=== PATIENT | female | born 1995 | race Two or more races ===

== ENCOUNTER 2019-09-17 18:55 | Emergency (ER) | payer SELFPAY ==
[2019-09-17 19:35] VITALS: BP 145/94
[2019-09-17] MEDS ORDERED: IPRATRPIUM/ALBUTEROL 0.5/2.5MG 3 ML NEBU. NEB ONE (20:00)
[2019-09-17] MEDS ORDERED: BENZONATATE 100 MG CAPSULE. PO ONE (20:00)
[2019-09-17] MEDS ORDERED: ACETAMINOPHEN 500 MG TABLET PO ONE (20:00)
[2019-09-17] MEDS ORDERED: predniSONE 10 MG TABLET PO ONE (20:00)
[2019-09-17 20:19] LABS: INFLUENZA A PATIENT NEGATIVE (NEGATIVE); INFLUENZA B PATIENT NEGATIVE (NEGATIVE)
--- NOTE | 2019-09-17 20:52 | PHYS DOC ---
Past Medical History Alcohol Use: None Adult General Chief Complaint Chief Complaint: COUGH HPI HPI Patient is a 24 year old female who presents to the ED today with a cough that began 3 weeks ago, sore throat and fever that began yesterday. Patient is Yoruba-speaking and interpretation is provided by family Review of Systems Review of Systems Constitutional: Reports fever Eyes: Denies change in visual acuity, redness, or eye pain [] HENT: Reports sore throat. Denies nasal congestion Respiratory: Reports cough, denies shortness of breath [] Cardiovascular: No additional information not addressed in HPI [] GI: Denies abdominal pain, nausea, vomiting, bloody stools or diarrhea [] : Denies dysuria or hematuria [] Musculoskeletal: Denies back pain or joint pain [] Integument: Denies rash or skin lesions [] Neurologic: Denies headache, focal weakness or sensory changes [] All other systems were reviewed and found to be within normal limits, except as documented in this note. Current Medications Current Medications Current Medications Medications (Trade) Dose Ordered Sig/[facility] Start Time Stop Time Status Last Admin Dose Admin Acetaminophen (Tylenol) 1,000 mg 1X ONCE 09/17/19 20:00 09/17/19 20:01 DC 09/17/19 19:57 1,000 MG Albuterol/ Ipratropium (Duoneb) 3 ml 1X ONCE 09/17/19 20:00 09/17/19 20:01 DC 09/17/19 20:12 3 ML Benzonatate (Tessalon Perle) 100 mg 1X ONCE 09/17/19 20:00 09/17/19 20:01 DC 09/17/19 19:58 100 MG Prednisone (Prednisone) 50 mg 1X ONCE 09/17/19 20:00 09/17/19 20:01 DC 09/17/19 19:57 50 MG Allergies Allergies Allergies Coded Allergies Type Severity Reaction Last Updated Verified No Known Drug Allergies 09/17/19 No Physical Exam Physical Exam Constitutional: Well developed, well nourished, no acute distress, non-toxic appearance. [] HENT: Normocephalic, atraumatic, bilateral external ears normal, oropharynx moist, no oral exudates, nose normal. [] Eyes: PERRLA, EOMI, conjunctiva normal, no discharge. [] Neck: Normal range of motion, no tenderness, supple, no stridor. [] Cardiovascular:Heart rate regular rhythm, no murmur [] Lungs & Thorax: Bilateral breath sounds clear to auscultation [] Abdomen: Bowel sounds normal, soft, no tenderness, no masses, no pulsatile masses. [] Skin: Warm, dry, no erythema, no rash. [] Back: No tenderness, no CVA tenderness. [] Extremities: No tenderness, no cyanosis, no clubbing, ROM intact, no edema. [] Neurologic: Alert and oriented X 3, normal motor function, normal sensory function, no focal deficits noted. [] Psychologic: Affect normal, judgement normal, mood normal. [] Current Patient Data Vital Signs Vital Signs Date Time Temp Pulse Resp B/P (MAP) Pulse Ox O2 Delivery O2 Flow Rate FiO2 09/17/19 20:10 100 Room Air 09/17/19 19:35 100.7 95 18 145/94 (111) 100.7 Lab Values Laboratory Tests Test 09/17/19 19:40 Influenza Type A Antigen Negative (NEGATIVE) Influenza Type B Antigen Negative (NEGATIVE) EKG EKG [] Radiology/Procedures Radiology/Procedures [] Course & Med Decision Making Course & Med Decision Making Pertinent Labs and Imaging studies reviewed. (See chart for details) This is a 24-year-old female patient presenting to the ED today with a cough that began 3 weeks ago and a sore throat and fever since yesterday. Temperature 100.7. Negative rapid strep. Negative influenza A or B. Cough might be bronchitis. Considering the extended period of time and a negative chest x-ray l will go ahead and put this patient on prednisone, Tessalon Perles, albuterol inhaler and prescription for azithromycin. Follow-up with primary care doctor in 1-2 weeks. Tylenol /Motrin for pain or fever. Dragon Disclaimer Dragon Disclaimer This electronic medical record was generated, in whole or in part, using a voice recognition dictation system. Departure Departure Impression: Primary Impression: Acute bronchitis Additional Impressions: Fever Pharyngitis, acute Disposition: 01 HOME, SELF-CARE Condition: STABLE Referrals: NO PCP (PCP) follow up with your doctor in 1-2 weeks Patient Instructions: Acute Bronchitis, Fever, Adult, Viral and Bacterial Pharyngitis Additional Instructions: You were evaluated in the emergency room for bronchitis, pharyngitis and a fever. Take the prescribed medications as ordered. Follow-up with your doctor in 1-2 weeks. Come back to the ED at any point symptoms worsen. Scripts Azithromycin (ZITHROMAX) 250 Mg Tablet 1 PKG PO UD, #1 PKG Prov: BECCA CRUZ APRN 09/17/19 Albuterol Sulfate (Proair Hfa) 8.5 Gm Hfa.aer.ad 2 PUFF IH PRN Q4-6HRS PRN for wheezing for 21 Days, #1 INHALER 0 Refills Prov: BECCA CRUZ APRN 09/17/19 Benzonatate (TESSALON PERLE) 100 Mg Capsule 1 CAP PO TID, #30 CAP Prov: BECCA CRUZ APRN 09/17/19 Prednisone (PREDNISONE) 50 Mg Tablet 1 TAB PO DAILY, #5 TAB Prov: BECCA CRUZ APRN 09/17/19 Problem Qualifiers Primary Impression: Acute bronchitis Bronchitis organism: unspecified organism Qualified Codes: J20.9 - Acute bronchitis, unspecified Additional Impressions: Fever Fever type: unspecified Qualified Codes: R50.9 - Fever, unspecified Pharyngitis, acute Pharyngitis/tonsillitis etiology: unspecified etiology Qualified Codes: J02.9 - Acute pharyngitis, unspecified BECCA CRUZ APRN Sep 17, 2019 20:51
[2019-09-17] MEDS ORDERED: AZIT250T PO (20:57)
[2019-09-17] MEDS ORDERED: ALBU2.5V8 IH (20:57)
[2019-09-17] MEDS ORDERED: PRED50TA PO (20:57)
[2019-09-17] MEDS ORDERED: BENZ100C PO (20:57)
--- NOTE | 2019-09-17 21:24 | RAD ---
CHEST PA LATERAL History: Fever. Cough. Comparison: None. Findings: Patchy bibasilar opacities. No pneumothorax. Borderline enlarged cardiac size. No pleural effusion. Impression: 1. Low lung volumes with patchy bibasilar opacities, may represent atelectasis or consolidations. Recommend follow-up. Electronically signed by: Matthew Chow DO (09/17/2019 9:21 PM) [facility]
== END 2019-09-17 21:17 | disposition home or self-care (01) ==
LOC: ER 18:55
DX: J20.9 Acute bronchitis, unspecified (principal); R50.9 Fever, unspecified; J02.9 Acute pharyngitis, unspecified; R05 Cough
CPT/HCPCS: 71046; 87070; 87804; 87880; 94640; 99285; J7512; J7620

== ENCOUNTER 2021-05-10 20:26 | Emergency (ER) | payer SELFPAY ==
[~2021-05-10] VITALS: Ht 160 cm; Wt 113.6 kg
[~2021-05-10 20:26] MED LIST: ALBU2.5V8 IH; AZIT250T PO; BENZ100C PO; PRED50TA PO
[2021-05-10] MEDS ORDERED: DEXAMETHASONE 4 MG TABLET PO ONE (21:00)
[2021-05-10 21:37] LABS: INFLUENZA A PATIENT NEGATIVE (NEGATIVE); INFLUENZA B PATIENT NEGATIVE (NEGATIVE)
--- NOTE | 2021-05-10 21:47 | PHYS DOC ---
Past Medical History Past Medical History: Asthma, Bronchitis Past Surgical History: Smoking Status: Never Smoker Alcohol Use: None Drug Use: None General Adult EDM: Chief Complaint: SHORTNESS OF BREATH HPI: HPI: Patient is a 26-year-old gravid female presents as a G2, P1 at approximately 35 weeks with report of shortness of breath and cough that has been ongoing for the past 3 to 4 days. Patient also reports some associated nasal congestion. Denies fever or chills. Denies known exposure to COVID-19. Patient has not been vaccinated for COVID-19. Denies trauma. Denies vaginal bleeding or discharge. Review of Systems: Review of Systems: Constitutional: Denies fever or chills Eyes: Denies redness or eye pain HENT: Denies nasal congestion or sore throat Respiratory: Reports cough and shortness of breath Cardiovascular: Denies chest pain or palpitations GI: Denies abdominal pain, nausea, or vomiting /STONEWORKING SANDER: Denies dysuria or hematuria; reports third trimester ; denies vaginal bleeding or discharge Musculoskeletal: Denies back pain or joint pain Integument: Denies rash or skin lesions Neurologic: Denies headache, focal weakness or sensory changes Complete systems were reviewed and found to be within normal limits, except as documented in this note. Heart Score: C/O Chest Pain: N/A Current Medications: Current Medications Medications (Trade) Dose Ordered Sig/[facility] Start Time Stop Time Status Last Admin Dose Admin Dexamethasone (Decadron) 10 mg 1X ONCE 05/10/21 21:00 05/10/21 21:01 DC 05/10/21 21:05 10 MG Allergies: Allergies: Allergies Coded Allergies Type Severity Reaction Last Updated Verified No Known Drug Allergies 09/17/19 No Physical Exam: PE: Constitutional: Well developed, well nourished, no acute distress, non-toxic appearance HENT: Normocephalic, atraumatic, bilateral TMs clear, no active nasal discharge, turbinates enlarged bilaterally, pharynx clear without exudate or erythema Eyes: Conjunctiva normal, no discharge Neck: Normal range of motion, supple, no stridor Lungs & Thorax: No respiratory distress, equal chest rise and fall, lungs clear to auscultation bilaterally anteriorly x 2 points and posteriorly x 4 points Abdomen: Gravid, nontender Skin: Warm, dry, no erythema, no rash Extremities: No tenderness, ROM intact, 2+ bilateral edema Neurologic: Alert and oriented X 3, no focal deficits noted Psychologic: Affect normal, judgment normal EKG: EKG: [] Radiology/Procedures: Radiology/Procedures: [] Course & Med Decision Making: Course & Med Decision Making Nontoxic third trimester patient presents with report of cough, shortness of breath, and nasal congestion x3 to 4 days. Sats stable. No signs of respiratory distress. Patient ambulates without any dyspnea. Lungs clear to auscultation bilaterally. Patient has not been vaccinated for COVID-19. Covid testing pending. Rapid influenza negative. Symptomatic treatment provided with one-time dose of oral steroid. heart tones stable. No clinical signs of DVT or PE. Patient stable for discharge with outpatient follow-up with PCP/OB-STONEWORKING SANDER. Discussed findings and plan with patient and spouse, who acknowledge understanding and agreement. COVID-19 CRITERIA: The patient was evaluated during the global COVID-19 pandemic, and that diagnosis was suspected/considered upon their initial presentation. Their evaluation, treatment and testing was consistent with current guidelines for patients who present with complaints or symptoms that may be related to COVID-19. DragApse Disclaimer: SA Ignite Disclaimer: This electronic medical record was generated, in whole or in part, using a voice recognition dictation system. Departure Departure Impression: Primary Impression: URI (upper respiratory infection) Qualified Codes: J06.9 - Acute upper respiratory infection, unspecified Additional Impressions: Qualified Codes: Z3A.35 - 35 weeks gestation of Suspected 2019 novel coronavirus infection Disposition: HOME / SELF CARE / HOMELESS Condition: STABLE Referrals: NO PCP (PCP) Patient Instructions: ABCs of , Upper Respiratory Infection, Adult, [id number] Additional Instructions: Definicin Se le realiz la prueba de deteccin del COVID-19 o se le diagnostic dicha enfermedad. Es jen infeccin ocasionada por un nuevo tipo de coronavirus. En la mayora de los casos, el COVID-19 provoca sntomas similares a los del resfriado. En algunas personas, puede ocasionar sntomas ms graves, hyun problemas respiratorios. No existe un tratamiento para el virus COVID-19. El cuerpo elimina la infeccin con el tiempo. El cuidado personal ayuda a aliviar el malestar. Pasos que debe seguir 1. Cuidados personales Descanse cuando sea necesario. Los hbitos saludables pueden ayudarlo a sentirse mejor. Algunas medidas para lograr cambios incluyen lo siguiente: - Elija alimentos saludables, hyun frutas y verduras. Denice abundante cantidad de agua lydia todo el da. - Duerma jhonny por la noche. - Si fuma, intente no hacerlo. Wilbur ayudar a mejorar la respiracin. - Evite el alcohol. 2. Mantenga sanos a los dems El virus puede contagiarse a otras personas. Cada vez que estornuda o tose, se liberan gotitas. Las gotitas pueden entrar en la boca, la nariz o los ojos de las personas que se encuentran cerca de usted y ocasionar la infeccin. Para reducir las probabilidades de contagiar el virus COVID-19 a otros, tenga en cuenta lo siguiente: - Qudese en casa el tiempo que el mdico se lo indique. Es posible que deba quedarse en casa hasta que la enfermedad desaparezca. Salga nicamente para recibir atencin mdica o en jorje de urgencia. - Evite las reas pblicas, los eventos o el transporte pblico. No reanude las actividades laborales o escolares hasta que el mdico lo autorice. - Llame previamente si necesita asistir a un centro mdico. Avise que es posible que haya contrado COVID-19. Wilbur ayudar a que le indiquen adonde debe dirigirse. Coleman pueden pedirle que use jen mscara facial cuando vaya al consultorio. Si llama a los servicios de asistencia mdica de urgencias, avseles que es posible que haya contrado COVID-19. Mientras est en casa: - Evite el contacto directo con otras personas. Mantngase a jen distancia aproximada de 2 metros. Si es posible, pasen la mayor parte del tiempo en strickland separadas. - Use jen mscara facial si estar en contacto directo con otras personas, por ejemplo, si compartir jen habitacin o un vehculo. - Pida a alguien que limpie las superficies comunes de la casa. Limpie picaportes, mesadas y lavamanos con limpiadores domsticos todos los dang. - Al toser o estornudar, cbrase con un pauelo de papel. Despus de usarlo, deschelo de inmediato. Si no tiene un pauelo de papel, tosa o estornude en el pliegue del codo. - Lvese las carroll con frecuencia. Lvese las carroll despus de estornudar o toser. Lvese con agua y jabn lydia, al menos, 20 segundos. Si no dispone de agua y jabn, use un limpiador de carroll a base de alcohol. - No cocine para otros. Evite compartir objetos personales, hyun tenedores, cucharas o cepillos de dientes. - Mientras est enfermo, evite el contacto directo con las mascotas. No hay indicios de si el virus se transmite a las mascotas. Esta es jen medida de seguridad que debe tenerse en cuenta hasta que se sepa ms acerca de ericka virus. El aislamiento puede ser frustrante. La interaccin social puede ayudar. Mantngase en contacto con amigos y familiares por telfono u otros medios tecnolgicos. Puede interactuar con otras personas en el hogar, emmett mantenga jen distancia rae de aproximadamente 2 metros. Seguimiento Las pruebas para confirmar la presencia del COVID-19 pueden demorar algunos dang. Es posible que deba seguir los pasos mencionados anteriormente hasta que estn los resultados de las pruebas. Lo llamarn del consultorio mdico para saber si vang habido algn cambio en ricks alfred. Tambin le avisarn cuando pueda volver a estar cerca de otras personas. Problemas a los que debe estar atento Comunquese con el mdico si no se recupera segn lo previsto o si tiene problemas hyun los siguientes: - Dificultad para respirar - Dolor de pecho - Empeoramiento de los sntomas Si justo que tiene jen urgencia, llame a los servicios de asistencia mdica de urgencias de inmediato. As taken from [employer] [employer] COVID-19 Assessment: COVID-19 Patient Risks: Age 65 or older: No Sign of co-morbidity: Yes Exp to person + for COVID: No Exp to PUI: No Travel from affected area: No Lower respiratory symptoms: Yes Fever: No Other: Yes PPE Use: Full PPE with N95 mask or PAPR: Yes EDUARDO KUNZ DO May 10, 2021 21:46
[2021-05-10 21:58] VITALS: BP 129/65
--- NOTE | 2021-05-12 14:30 | NUR ---
IP: Informed pt of negative covid test. Pt verbalized understanding.
== END 2021-05-10 22:14 | disposition home or self-care (01) ==
LOC: ER 20:26
DX: O99.513 Diseases of the respiratory system complicating pregnancy, third trimester (principal); Z20.822 Contact with and (suspected) exposure to COVID-19; J06.9 Acute upper respiratory infection, unspecified; Z3A.35 35 weeks gestation of pregnancy; J45.909 Unspecified asthma, uncomplicated
CPT/HCPCS: 87804; 99283; U0003; U0005

== ENCOUNTER → 2021-05-30 | Outpatient (CLI) | payer SELFPAY ==
[2021-05-10 21:58] VITALS: BP 129/65
[~2021-05-30] MED LIST changes: +OXYC1TAB15 PO
== END ==
LOC: LAB 10:17
PROVIDERS: ATTEND Obstetrics & Gynecology
DX: Z01.812 Encounter for preprocedural laboratory examination (principal); Z20.822 Contact with and (suspected) exposure to COVID-19
CPT/HCPCS: U0003; U0005

== ENCOUNTER 2021-06-02 04:57 | Inpatient (IN) | payer SELFPAY ==
[2021-06-02] VITALS (7 sets, daily range): BP systolic 112–134; BP diastolic 56–81
[~2021-06-02] VITALS: Ht 167.6 cm; Wt 140.9 kg
[~2021-06-02 04:57] MED LIST changes: -OXYC1TAB15 PO
[2021-06-02] MEDS ORDERED: IV RINGERS,LACTATED 1000ML 1,000 ML IV SCH (06:00)
[2021-06-02] MEDS ORDERED: CITRIC ACID/SODIUM CITRATE 30 ML SOLUTION. PO ONE (06:00)
[2021-06-02] MEDS ORDERED: IV NORMAL SALINE 1000ML BAG 1,000 ML IV SCH (06:00)
[2021-06-02] MEDS ORDERED: OXYTOCIN 10 UNIT/ML VIAL. ONE (06:57)
[2021-06-02] MEDS ORDERED: fentaNYL PF VIAL 100 MCG/2 ML VIAL ONE (06:58)
[2021-06-02] MEDS ORDERED: MORPHINE PF 10 MG/10 ML AMPUL. ONE (06:58)
[2021-06-02 07:12] LABS: BILIRUBIN,URINE NEGATIVE (NEG); CLARITY,URINE CLEAR; COLOR,URINE YELLOW; NITRITE,URINE NEGATIVE (NEG); PH,URINE 6.5 (<5.0-8.0); PROTEIN,URINE NEGATIVE (NEG-TRACE); UROBILINOGEN,URINE 0.2 mg/dL (0.2 mg/dL)
[2021-06-02 07:13] LABS: HEMOGLOBIN 11.8 g/dL (12.0-15.5); RED CELL DISTRIBUTION WIDTH 20.2 % (11.5-14.5); WHITE BLOOD COUNT 10.4 x10^3/uL (4.0-11.0)
[2021-06-02 07:37] LABS: BACTERIA,URINE FEW /HPF (0-FEW); RBC,URINE 0 /HPF (0-2); WBC,URINE 0 /HPF (0-4)
--- NOTE | 2021-06-02 07:54 | PDOC1 ---
VALIDATION MANAGER H&P Date of Admission: Date of Admission: Jun 02, 2021 at 06:06 History of Present Illness: EDC: 06/08/21 LMP: 09/01/20 26y @ 39.1 by L=24 presents for scheduled C/S. The pt has had occasional elevated BPs throughout her course. The pt only recently began taking Fe. PMH: Obesity Class III PSH: 2014 Meds: PNV, Fe All: NKDA OBHx: TC/S x 1 SH: no tob, no EtOH FH: Noncontributory Medications: Meds: Current Medications Medications (Trade) Dose Ordered Sig/[facility] Route PRN Reason Start Time Stop Time Status Last Admin Dose Admin Ringer's Solution 1,000 ml @ 125 mls/hr Q8H IV 06/02/21 06:00 06/02/21 06:47 Cefazolin Sodium/ Dextrose 50 ml @ 100 mls/hr 1X ONCE IV 06/02/21 06:00 06/02/21 06:29 DC 06/02/21 06:47 Citric Acid/ Sodium Citrate (Bicitra) 30 ml 1X ONCE PO 06/02/21 06:00 06/02/21 06:07 DC 06/02/21 07:24 Allergies: Coded Allergies: No Known Drug Allergies (Unverified , 09/17/19) Physical Exam: Vital Signs: Vital Signs Date Time Temp Pulse Resp B/P (MAP) Pulse Ox O2 Delivery O2 Flow Rate FiO2 06/02/21 05:41 98.4 75 18 124/81 (95) Room Air 98.4 PE: GENERAL: No apparent distress. Alert and oriented. HEENT: Head normocephalic, atraumatic. NECK: Supple LUNGS: Clear to auscultation. HEART: RRR, S1, S2 present, pulses intact ABDOMEN: Soft, positive bowel sounds. EXTREMITIES: No cyanosis or edema. NEUROLOGIC: Normal speech, normal tone PSYCHIATRIC: Normal affect, normal mood. SKIN: No ulceration. FHT: 120's +acels/no decels/mLTV [place]: 10 min Labs: Laboratory Tests Test 06/02/21 05:02 06/02/21 06:40 Urine Collection Type Unknown Urine Color Yellow Urine Clarity Clear Urine pH 6.5 (<5.0-8.0) Urine Specific [place] 1.020 (1.000-1.030) Urine Protein Negative mg/dL (NEG-TRACE) Urine Glucose (UA) Negative mg/dL (NEG) Urine Ketones (Stick) Negative mg/dL (NEG) Urine Blood Negative (NEG) Urine Nitrite Negative (NEG) Urine Bilirubin Negative (NEG) Urine Urobilinogen Dipstick 0.2 mg/dL (0.2 mg/dL) Urine Leukocyte Esterase Negative (NEG) Urine RBC 0 /HPF (0-2) Urine WBC 0 /HPF (0-4) Urine Squamous Epithelial Cells Mod /LPF Urine Bacteria Few /HPF (0-FEW) White Blood Count 10.4 x10^3/uL (4.0-11.0) Red Blood Count 5.00 x10^6/uL (3.50-5.40) Hemoglobin 11.8 g/dL (12.0-15.5) L Hematocrit 36.0 % (36.0-47.0) Mean Corpuscular Volume 72 fL (79-100) L Mean Corpuscular Hemoglobin 24 pg (25-35) L Mean Corpuscular Hemoglobin Concent 33 g/dL (31-37) Red Cell Distribution Width 20.2 % (11.5-14.5) H Platelet Count 222 x10^3/uL (140-400) Laboratory Tests 06/02/21 06:40 Laboratory Tests 06/02/21 06:40 Assessment & Plan: A/P 26y @ 39.1 by L=24 1.) Prev C/S x 1 desires repeat 2.) Anemia - Hgb 11.8 3.) BMI 47 4.) Chl pos - FIOR neg 5.) Elevated GTT - 0 of 4 values of 3hr GTT elevated 6.) TDAP given 05/08/21 7.) Elevated BP - one severe aand on mild BP, all the others nml, no s/s of preeclampsia 8.) Fetus cat I FHT 9.) GBS neg EDUARDO CARREON MD Jun 02, 2021 07:54
[2021-06-02] MEDS ORDERED: ceFAZolin SODIUM IV Push 1 GM VIAL. IVP ONE (08:00)
[2021-06-02] MEDS ORDERED: LIDOCAINE 1% PF 5 ML VIAL. ONE (08:17)
[2021-06-02] MEDS ORDERED: ACETAMINOPHEN 325 MG TABLET. PO PRN (10:15)
[2021-06-02] MEDS ORDERED: 0.9 % SODIUM CHLORIDE 10 ML DISP.SYRIN. IV PRN (10:15)
[2021-06-02] MEDS ORDERED: BENZOCAINE 20% TOPICAL AEROSOL SPRAY 57GM CAN. TP PRN (10:15)
[2021-06-02] MEDS ORDERED: MMR per PROTOCOL. MC PRN (10:15)
[2021-06-02] MEDS ORDERED: TDaP (Adacel) per PROTOCOL. MC PRN (10:15)
[2021-06-02] MEDS ORDERED: OXYTOCIN 30 UNIT/500 ML PREMIX 500 ML IV PRN (10:15)
[2021-06-02] MEDS ORDERED: diphenhydrAMINE ORAL ELIXIR 12.5 MG/5 ML ML PO PRN (10:15)
--- NOTE | 2021-06-02 10:36 | PDOC4 ---
OPERATIVE NOTE: PreOp Dx: 1.) IUP @ 39.1 by L=24, 2.) Prev C/S x 1 desires repeat, 3.) Anemia, 4.) BMI 47, 5.) Chl pos - FIOR neg, 6.) Elevated GTT - 0 of 4 values of 3hr GTT elevated, 7.) GHTN, 8.) GBS neg PostOp Dx: same, 9.) Breech Procedure: RLTCS Surgeons: Angeles Carreon Anesthesia: Spinal EBL: 700 cc Fluids: 2300 cc UOP: 200 cc Findings: viable male delivered at 0847. Wt 4300 g. Apgars 8/9. Nml maternal anatomy. Complication: None Path: Cord blood, placenta EDUARDO CARREON MD Jun 02, 2021 10:36
--- NOTE | 2021-06-02 11:04 | OP ---
DATE OF SURGERY: 06/02/2021 PREOPERATIVE DIAGNOSES: 1. Intrauterine at 39 weeks and 1 day by LMP equal to 24-week ultrasound. 2. Previous x1, desires repeat. 3. Anemia. 4. Body mass index of 47. 5. Chlamydia positive with negative treatment of cure. 6. Elevated GTT with 0 of 4 values of the 3-hour GTT elevated. 7. Gestational hypertension. 8. GBS negative. POSTOPERATIVE DIAGNOSES: 1. Intrauterine at 39 weeks and 1 day by LMP equal to 24-week ultrasound. 2. Previous x1, desires repeat. 3. Anemia. 4. Body mass index of 47. 5. Chlamydia positive with negative treatment of cure. 6. Elevated GTT with 0 of 4 values of the 3-hour GTT elevated. 7. Gestational hypertension. 8. GBS negative. 9. Breech. PROCEDURE: Repeat low transverse . SURGEON: Sohan Chow MD ANESTHESIA: Spinal. ESTIMATED BLOOD LOSS: 700 mL. FLUIDS: 2300 mL. URINE OUTPUT: 200 mL. FINDINGS: Viable male infant delivered at 0847, weighing 4300 grams with Apgars of 8 and 9. Normal maternal anatomy noted. COMPLICATIONS: None. PATHOLOGY: Cord blood, placenta. DESCRIPTION OF PROCEDURE: The patient was taken to the operating room where spinal anesthesia was placed without difficulty. The patient was prepped and draped in normal sterile fashion. A Pfannenstiel skin incision was made through her previous incision and carried down to the underlying layer of fascia. The fascia was then nicked in the midline. The fascial incision was then extended laterally with Chun scissors. The superior aspect of the fascial incision was grasped with Moises clamps, elevated and the underlying rectus muscle was dissected off of the scalpel. Attention was then turned to the inferior aspect of the fascial incision, which was grasped with Moises clamps, elevated and underlying rectus muscle was dissected off with Chun scissors. At that point, the midline of the rectus muscle was identified and . The peritoneum was then grasped with 2 hemostats and entered sharply with Metzenbaum scissors. The peritoneal incision was then extended superiorly and inferiorly with good visualization of the bladder with traction and countertraction. At that point, the Edwin ring was then placed in the abdomen to better visualize the lower uterine segment. A bladder flap was created with Metzenbaum scissors. Lower uterine segment was then incised in transverse fashion. The hysterotomy was extended with traction and countertraction. The infant's right foot was then exiting the hysterotomy. The left leg was then grasped and pulled through the hysterotomy, so that both legs were delivered as well as the bottom, the was then rotated sacrum anterior. At that point, the was delivered to the level of scapula. The left arm was then swept medially and delivered followed by the right arm, which was swept medially and delivered. At that point, the infant's head was then flexed with the [id number] maneuver. The rest of infant was delivered atraumatically. The nose and mouth were bulb suctioned. The cord was double clamped and cut and was handed over to the waiting filter press pumper. Placenta was then removed manually and cleared of all clots and debris. Uterine incision was then repaired with #1 chromic in a running locked fashion. Second layer of the same suture was used to imbricate. There were some areas along the serosal edges with bladder flap had been created that were bleeding. A 2-0 chromic was then placed at the left lateral edge with a [id number] stitch. This was then run in a running locked fashion along the entire incision. Good hemostasis was noted at that point. At that point, the gutters were copiously irrigated and cleared of all the clots and debris. The Edwin ring was then removed. The peritoneal incision was then reapproximated with 2-0 Vicryl in a running fashion. The muscle was reapproximated with 2-0 Vicryl in a running fashion. The fascia was then closed with 0 Vicryl in a running fashion. The skin was closed with 3-0 Monocryl in subcuticular manner. Sponge, lap and needles were correct x3. 3 grams of Ancef were given prior to the procedure. The patient was taken to recovery room in stable condition. JOSHUA DR: Ari TID: [id number] [facility]
[2021-06-02] MEDS: KETOROLAC 30 MG/ML VIAL. IVP PRN ×2 (11:20→19:37)
[2021-06-02] MEDS: IV RINGERS,LACTATED 1000ML 1,000 ML IV PRN (15:48)
[2021-06-03] VITALS (7 sets, daily range): BP systolic 116–142; BP diastolic 67–79
[2021-06-03] MEDS: IV RINGERS,LACTATED 1000ML 1,000 ML IV PRN (00:02)
[2021-06-03] MEDS: KETOROLAC 30 MG/ML VIAL. IVP PRN (06:36)
[2021-06-03 07:29] LABS: HEMATOCRIT 30.3 % (36.0-47.0); HEMOGLOBIN 9.9 g/dL (12.0-15.5); RED BLOOD COUNT 4.19 x10^6/uL (3.50-5.40); RED CELL DISTRIBUTION WIDTH 20.5 % (11.5-14.5); WHITE BLOOD COUNT 11.6 x10^3/uL (4.0-11.0)
[2021-06-03] MEDS: FERROUS SULFATE 325 MG TABLET. PO SCH ×2 (08:16→17:58)
[2021-06-03] MEDS: DOCUSATE SODIUM 100 MG CAPSULE. PO PRN ×2 (08:16→18:44)
[2021-06-03] MEDS: PRENATAL MULTIVITAMIN TABLET. PO SCH (08:17)
[2021-06-03] MEDS: oxyCODONE/APAP 5/325 1 TAB TABLET PO PRN ×5 (08:17→23:23)
[2021-06-03] MEDS: MULTIVITAMIN with MINERAL TABLET. PO SCH (09:00)
--- NOTE | 2021-06-03 10:00 | PDOC ---
PORTRAIT CONSULTANT PROGRESS NOTE Date of Service: DATE: 06/03/21 TIME: 09:59 Subjective: Pt with good pain control. Alex PO. Voiding. Minimal lochia. Denies KWOK, changes in vision, or abd pain. Objective: Vital Signs: Vital Signs Date Time Temp Pulse Resp B/P (MAP) Pulse Ox O2 Delivery O2 Flow Rate FiO2 06/02/21 12:28 98.7 63 24 117/56 (76) 97 Room Air 98.7 Vital Signs Date Time Temp Pulse Resp B/P (MAP) Pulse Ox O2 Delivery O2 Flow Rate FiO2 06/03/21 08:26 18 97 Room Air 06/03/21 08:00 99.1 84 142/69 (93) 99.1 Labs: Laboratory Tests Test 06/03/21 06:50 White Blood Count 11.6 x10^3/uL (4.0-11.0) H Red Blood Count 4.19 x10^6/uL (3.50-5.40) Hemoglobin 9.9 g/dL (12.0-15.5) L Hematocrit 30.3 % (36.0-47.0) L Mean Corpuscular Volume 72 fL (79-100) L Mean Corpuscular Hemoglobin 24 pg (25-35) L Mean Corpuscular Hemoglobin Concent 33 g/dL (31-37) Red Cell Distribution Width 20.5 % (11.5-14.5) H Platelet Count 194 x10^3/uL (140-400) Laboratory Tests 06/03/21 06:50 Laboratory Tests 06/03/21 06:50 Physical Exam: GENERAL: No apparent distress. Alert and oriented. HEENT: Head normocephalic, atraumatic. NECK: Supple LUNGS: Clear to auscultation. HEART: RRR, S1, S2 present, pulses intact ABDOMEN: Soft, positive bowel sounds. EXTREMITIES: No cyanosis or edema. NEUROLOGIC: Normal speech, normal tone PSYCHIATRIC: Normal affect, normal mood. SKIN: No ulceration. FFNT below umb No C/C/E Inc: C/D/I (Provena in place) Assessment & Plan: A/P 26y POD #1 s/p RLTCS 1.) PO doing well 2.) Anemia - Hgb 11.8 -> 9.9 3.) TDAP given 05/08/21 4.) GHTN - one severe and one mild BP prior to delivery, BPs nml to mild since delivery, no s/s of preeclampsia 5.) Cont PO care EDUARDO CARREON MD Jun 03, 2021 10:00
[2021-06-03] MEDS: IBUPROFEN 400 MG TABLET. PO PRN ×2 (12:47→23:23)
[2021-06-04 04:34] VITALS: BP 128/71
[2021-06-04] MEDS: DOCUSATE SODIUM 100 MG CAPSULE. PO PRN ×2 (07:59→18:21)
[2021-06-04] MEDS: IBUPROFEN 400 MG TABLET. PO PRN ×2 (07:59→18:22)
[2021-06-04] MEDS: PRENATAL MULTIVITAMIN TABLET. PO SCH (07:59)
[2021-06-04] MEDS: FERROUS SULFATE 325 MG TABLET. PO SCH ×3 (07:59→18:21)
[2021-06-04] MEDS: oxyCODONE/APAP 5/325 1 TAB TABLET PO PRN ×3 (08:02→18:22)
[2021-06-04 08:19] VITALS: BP 117/72
[2021-06-04] MEDS: MULTIVITAMIN with MINERAL TABLET. PO SCH (09:00)
--- NOTE | 2021-06-04 09:43 | PDOC ---
HEAT AND [employer]CH[employer]IC PROGRESS NOTE Date of Service: DATE: 06/04/21 TIME: 09:42 Subjective: Pt with good pain control. Alex PO. Voiding. Minimal lochia Objective: Vital Signs: Vital Signs Date Time Temp Pulse Resp B/P (MAP) Pulse Ox O2 Delivery O2 Flow Rate FiO2 06/03/21 08:00 99.1 84 18 142/69 (93) 97 Room Air 99.1 Vital Signs Date Time Temp Pulse Resp B/P (MAP) Pulse Ox O2 Delivery O2 Flow Rate FiO2 06/04/21 08:19 98.2 64 18 117/72 (87) Room Air 98.2 06/04/21 08:02 97 Physical Exam: GENERAL: No apparent distress. Alert and oriented. HEENT: Head normocephalic, atraumatic. NECK: Supple LUNGS: Clear to auscultation. HEART: RRR, S1, S2 present, pulses intact ABDOMEN: Soft, positive bowel sounds. EXTREMITIES: No cyanosis or edema. NEUROLOGIC: Normal speech, normal tone PSYCHIATRIC: Normal affect, normal mood. SKIN: No ulceration. FFNT below umb No C/C/E Inc: C/D/I Assessment & Plan: A/P 26y POD #2 s/p RLTCS 1.) PO doing well 2.) Anemia - Hgb 11.8 -> 9.9 3.) TDAP given 05/08/21 4.) GHTN - one severe and one mild BP prior to delivery, BPs nml to mild since delivery, no s/s of preeclampsia 5.) D/c home EDUARDO CARREON MD Jun 04, 2021 09:43
[2021-06-04] MEDS ORDERED: OXYC1TAB15 PO (09:45)
[2021-06-04 14:00] VITALS: BP 138/92
[2021-06-04 22:15] VITALS: BP 133/46
[2021-06-05] MEDS: oxyCODONE/APAP 5/325 1 TAB TABLET PO PRN ×2 (00:36→13:51)
[2021-06-05] MEDS: IBUPROFEN 400 MG TABLET. PO PRN ×2 (05:43→13:51)
[2021-06-05 05:45] VITALS: BP 145/83
[2021-06-05] MEDS: DOCUSATE SODIUM 100 MG CAPSULE. PO PRN (09:01)
[2021-06-05] MEDS: PRENATAL MULTIVITAMIN TABLET. PO SCH (09:01)
[2021-06-05] MEDS: MULTIVITAMIN with MINERAL TABLET. PO SCH (09:01)
[2021-06-05] MEDS ORDERED: FLU VACC QUAD 21-22 (6MOS+) PF 0.5 ML SYRINGE. VAX IM ONE (11:00)
--- NOTE | 2021-06-05 11:15 | PDOC ---
MECHANIC FIELD SERVICE PROGRESS NOTE Date of Service: DATE: 06/05/21 TIME: 11:14 Subjective: Pt with good pain control. Alex PO. Voiding. Minimal lochia. Denies KWOK, changes in vision or abd pain home Objective: Vital Signs: Vital Signs Date Time Temp Pulse Resp B/P (MAP) Pulse Ox O2 Delivery O2 Flow Rate FiO2 06/04/21 08:02 18 97 06/04/21 08:19 98.2 64 117/72 (87) Room Air 98.2 Vital Signs Date Time Temp Pulse Resp B/P (MAP) Pulse Ox O2 Delivery O2 Flow Rate FiO2 06/05/21 05:45 98.2 87 20 145/83 (103) 97 Room Air 98.2 Physical Exam: GENERAL: No apparent distress. Alert and oriented. HEENT: Head normocephalic, atraumatic. NECK: Supple LUNGS: Clear to auscultation. HEART: RRR, S1, S2 present, pulses intact ABDOMEN: Soft, positive bowel sounds. EXTREMITIES: No cyanosis or edema. NEUROLOGIC: Normal speech, normal tone PSYCHIATRIC: Normal affect, normal mood. SKIN: No ulceration. FFNT below umb No C/C/E Inc: C/D/I Assessment & Plan: A/P 26y POD #3 s/p RLTCS 1.) PO doing well 2.) Anemia - Hgb 11.8 -> 9.9 3.) TDAP given 05/08/21 4.) GHTN - one severe and one mild BP prior to delivery, BPs nml to mild since delivery, no s/s of preeclampsia 5.) D/c home EDUARDO CARREON MD Jun 05, 2021 11:15
--- NOTE | 2021-06-05 12:54 | DS ---
DATE OF DISCHARGE: 06/05/2021 ADMISSION DIAGNOSES: 1. Intrauterine at 39 weeks and 1 day by last menstrual period equal to a 24-week ultrasound. 2. Previous section x 1, desires repeat. 3. Anemia. 4. Body mass index of 47. 5. Chlamydia positive with negative treatment and cure. 6. Elevated glucose tolerance test with 0 of 4 values, a 3-hour glucose tolerance test elevated. 7. Status post tetanus, diphtheria and acellular pertussis. 8. Elevated blood pressure. 9. Group B streptococcus negative. DISCHARGE DIAGNOSES: 1. Intrauterine at 39 weeks and 1 day by last menstrual period equal to a 24-week ultrasound. 2. Previous section x 1, desires repeat. 3. Anemia. 4. Body mass index of 47. 5. Chlamydia positive with negative treatment and cure. 6. Elevated glucose tolerance test with 0 of 4 values, a 3-hour glucose tolerance test elevated. 7. Status post tetanus, diphtheria and acellular pertussis. 8. Elevated blood pressure. 9. Group B streptococcus negative. PROCEDURE: Repeat low transverse . BRIEF HOSPITAL COURSE: The patient is a 26-year-old 2, para 1-0-0-1 who presented to Labor and Delivery at 39 weeks and 1 day by LMP equal to a 24-week ultrasound for a scheduled . The patient had occasional elevated blood pressures throughout her course and had elevated blood pressure during this course. The patient had only recently began iron for her anemia. The patient underwent said procedure. See operative note for full detail. By postop day #3, the patient was meeting all discharge criteria and subsequently discharged home. Of note, the patient's hemoglobin on admission was 11.8 and after delivery, it was found to be 9.9. The patient had 1 severe range blood pressure and 1 mild range blood pressure prior to delivery, but after delivery, the remainder of her blood pressures were normal to mild. The patient remained without any signs or symptoms of preeclampsia throughout her hospitalization. DISCHARGE INSTRUCTIONS: The patient was told not to lift anything greater than 20 pounds, have pelvic rest for 6 weeks, not to drive on narcotics. CALL IF: The patient is to call if she had fevers, chills, nausea, vomiting, abdominal pain or any additional questions or concerns. FOLLOWUP APPOINTMENT: The patient was to follow up on 06/12/2021 at 1:00 p.m. for a appointment or for an incision check. DISCHARGE MEDICATIONS: The patient was given a prescription for Percocet 5, 15 pills; Motrin 800 mg, 30 pills and Colace 100 mg, 30 pills. The patient was also given a prescription for ferrous sulfate 325 mg, [address]: Ari TID: [id number]
[2021-06-05 14:01] VITALS: BP 128/80
--- NOTE | 2021-06-05 16:23 | NUR ---
Assessment by Lyn Gamino RN was performed at 0820 Addendum: 06/05/21 at 1624 by ZENY MANZANARES RN Amended: Links added.
--- NOTE | 2021-06-05 16:28 | NUR ---
Discharge Note: JOSE KNIGHT3 SO LND Discharge instructions and discharge home medications reviewed with Patient and a copy given. All questions have been answered and understanding verbalized. The following instructions and handouts were given: Discharge instructions post patients [facility] Patient Discharge Instruction Sheet and Medication Schedule Care After Delivery Depression and Baby Blues Well Receiving Team Member - Patient discharged to home with self-care via WC to private vehicle.
== END 2021-06-05 14:15 | disposition home or self-care (01) | DRG 788 ==
LOC: 3 SO LND 04:57 → UNDOADMOB 04:57 → 3 SO LND 06:06 → EDSTATUS 08:00 → 3 SO LND 12:20
PROVIDERS: ADMIT Obstetrics & Gynecology; ATTEND Obstetrics & Gynecology
PROC: 10D00Z1 Extraction of Products of Conception, Low, Open Approach (ICD-10-PCS; principal; 2021-06-02)
DX: O34.211 Maternal care for low transverse scar from previous cesarean delivery (principal); O13.4 Gestational [pregnancy-induced] hypertension without significant proteinuria, complicating childbirth; O99.02 Anemia complicating childbirth; Z37.0 Single live birth; Z3A.39 39 weeks gestation of pregnancy; D64.9 Anemia, unspecified; E66.9 Obesity, unspecified; O32.1XX0 Maternal care for breech presentation, not applicable or unspecified; O99.214 Obesity complicating childbirth
CPT/HCPCS: 36415; 81001; 85027; 86592; 86850; 86900; 86901; 90471; 90686; C1755; J0690; J1885; J2274; J2590; J3010; J3490; J7120; G0378

== ENCOUNTER 2021-07-31 12:58 | Emergency (ER) | payer SELFPAY ==
[~2021-07-31] VITALS: Ht 167.6 cm; Wt 122.9 kg
[~2021-07-31 12:58] MED LIST changes: +OXYC1TAB15 PO
--- NOTE | 2021-07-31 13:50 | RAD ---
EXAM: Chest, single view. HISTORY: Cough and fever. COMPARISON: 09/17/2019 FINDINGS: A frontal view of the chest is obtained. There has been interval increase in diffuse lower lobe predominant interstitial and alveolar infiltrate. No pleural effusion or pneumothorax is seen. T here is a stable cardiac silhouette. IMPRESSION: Increase in diffuse lower lobe predominant interstitial and alveolar infiltrate. Electronically signed by: Lizette Winslow MD (07/31/2021 1:48 PM) [facility]
--- NOTE | 2021-07-31 13:51 | PHYS DOC ---
Past Medical History Past Medical History: Asthma, Bronchitis Past Surgical History: Smoking Status: Never Smoker Alcohol Use: None Drug Use: None General Adult EDM: Chief Complaint: COUGH HPI: HPI: Patient is a 26 year old female who present to ER for evaluation of cough, fever, body ache, chills, diarrhea, nausea , LOSS SENSE OF TASTE since last Wednesday. Patient is not vaccinated for COVID-19. Patient denies any abdominal pain. Patient denies any trouble breathing or chest pain. Review of Systems: Review of Systems: Constitutional: Positive for fever or chills. [] Eyes: Denies change in visual acuity. [] HENT: Positive for nasal congestion or sore throat. [] Respiratory: Positive for cough , no shortness of breath. [] Cardiovascular: Denies chest pain or edema. [] GI: Denies abdominal pain, nausea, vomiting, bloody stools or diarrhea. [] : Denies dysuria. [] Musculoskeletal: Positive for back pain, joint pain, body ache Integument: Denies rash. [] Neurologic: Denies headache, focal weakness or sensory changes. [] Endocrine: Denies polyuria or polydipsia. [] Lymphatic: Denies swollen glands. [] Psychiatric: Denies depression or anxiety. [] Heart Score: C/O Chest Pain: N/A Risk Factors: Risk Factors: DM, Current or recent (<one month) smoker, HTN, HLP, family history of CAD, obesity. Risk Scores: Score 0 - 3: 2.5% MACE over next 6 weeks - Discharge Home Score 4 - 6: 20.3% MACE over next 6 weeks - Admit for Clinical Observation Score 7 - 10: 72.7% MACE over next 6 weeks - Early Invasive Strategies Allergies: Allergies: Allergies Coded Allergies Type Severity Reaction Last Updated Verified No Known Drug Allergies 09/17/19 No Physical Exam: PE: Constitutional: Well developed, well nourished, no acute distress, non-toxic appearance. [] HENT: Normocephalic, atraumatic, bilateral external ears normal, oropharynx moist, no oral exudates, nose normal. [] Eyes: PERRLA, EOMI, conjunctiva normal, no discharge. [] Neck: Normal range of motion, no tenderness, supple, no stridor. [] Cardiovascular:Heart rate regular rhythm, no murmur [] Lungs & Thorax: Bilateral breath sounds clear to auscultation [] Abdomen: Bowel sounds normal, soft, no tenderness, no masses, no pulsatile masses. [] Skin: Warm, dry, no erythema, no rash. [] Back: No tenderness, no CVA tenderness. [] Extremities: No tenderness, no cyanosis, no clubbing, ROM intact, no edema. [] Neurologic: Alert and oriented X 3, normal motor function, normal sensory function, no focal deficits noted. [] Psychologic: Affect normal, judgement normal, mood normal. [] Current Patient Data: Labs: Laboratory Tests Test 07/31/21 13:48 07/31/21 13:52 Influenza Type A Antigen Negative Influenza Type B Antigen Positive SARS-CoV-2 Antigen (Rapid) Positive Bedside Urine HCG, Qualitative Hcg negative Current Medications Medications (Trade) Dose Ordered Sig/Rosenda Route PRN Reason Start Time Stop Time Status Last Admin Dose Admin Ibuprofen (Motrin) 800 mg 1X ONCE PO 07/31/21 14:30 07/31/21 14:31 DC 07/31/21 14:35 Acetaminophen (Tylenol) 1,000 mg 1X ONCE PO 07/31/21 14:30 07/31/21 14:31 DC 07/31/21 14:36 Vital Signs: Vital Signs Date Time Temp Pulse Resp B/P (MAP) Pulse Ox O2 Delivery O2 Flow Rate FiO2 07/31/21 13:02 100.7 104 29 143/63 (89) 96 Room Air 100.7 EKG: EKG: [] Radiology/Procedures: Radiology/Procedures: [][facility] [address] [place], [place] [id number] IMAGING REPORT Signed PATIENT: JOSE KNIGHTACCOUNT: [id number] : 1995 LOCATION: ER AGE: 26 SEX: F EXAM STATUS: REG ER ORD. PHYSICIAN: ANGELA BLANCO DO REASON: cough and fever PROCEDURE: CHEST AP ONLY EXAM: Chest, single view. HISTORY: Cough and fever. COMPARISON: 09/17/2019 FINDINGS: A frontal view of the chest is obtained. There has been interval increase in diffuse lower lobe predominant interstitial and alveolar infiltrate. No pleural effusion or pneumothorax is seen. There is a stable cardiac silhouette. IMPRESSION: Increase in diffuse lower lobe predominant interstitial and alveolar infiltrate. Electronically signed by: Lizette Dickerson MD (07/31/2021 1:48 PM) [facility] DICTATED and SIGNED BY: LIZETTE DICKERSON MD DATE: 07/31/21 [id number] 0 Course & Med Decision Making: Course & Med Decision Making Pertinent Labs and Imaging studies reviewed. (See chart for details) Patient is a 26-year-old female who present to ER due to cough, fever, body aches since last Wednesday. Patient tested positive for COVID-19 and influenza B. Patient was not hypoxic, her vital signs were reassuring. Patient will be discharged home Dragon Disclaimer: Dragon Disclaimer: This electronic medical record was generated, in whole or in part, using a voice recognition dictation system. Departure Departure Impression: Primary Impression: Pneumonia due to COVID-19 virus Additional Impression: Influenza B Disposition: HOME / SELF CARE / HOMELESS Condition: STABLE Referrals: NO PCP (PCP) Please follow up with [facility] this week. [address], [address] [place] [address] Phone number: [phone] Patient Instructions: Influenza, Adult, Pneumonia, Adult Additional Instructions: Definicin Se le realiz la prueba de deteccin del COVID-19 o se le diagnostic dicha enfermedad. Es jen infeccin ocasionada por un nuevo tipo de coronavirus. En la mayora de los casos, el COVID-19 provoca sntomas similares a los del resfriado. En algunas personas, puede ocasionar sntomas ms graves, hyun problemas respiratorios. No existe un tratamiento para el virus COVID-19. El cuerpo elimina la infeccin con el tiempo. El cuidado personal ayuda a aliviar el malestar. Pasos que debe seguir 1. Cuidados personales Descanse cuando sea necesario. Los hbitos saludables pueden ayudarlo a sentirse mejor. Algunas medidas para lograr cambios incluyen lo siguiente: - Elija alimentos saludables, hyun frutas y verduras. Denice abundante cantidad de agua lydia todo el da. - Duerma jhonny por la noche. - Si fuma, intente no hacerlo. [place] ayudar a mejorar la respiracin. - Evite el alcohol. 2. Mantenga sanos a los dems El virus puede contagiarse a otras personas. Cada vez que estornuda o tose, se liberan gotitas. Las gotitas pueden entrar en la boca, la nariz o los ojos de las personas que se encuentran cerca de usted y ocasionar la infeccin. Para reducir las probabilidades de contagiar el virus COVID-19 a otros, tenga en cuenta lo siguiente: - Qudese en casa el tiempo que el mdico se lo indique. Es posible que deba quedarse en casa hasta que la enfermedad desaparezca. Salga nicamente para recibir atencin mdica o en jorje de urgencia. - Evite las reas pblicas, los eventos o el transporte pblico. No reanude las actividades laborales o escolares hasta que el mdico lo autorice. - Llame previamente si necesita asistir a un centro mdico. Avise que es posible que haya contrado COVID-19. [place] ayudar a que le indiquen adonde debe dirigirse. Tambin pueden pedirle que use jen mscara facial cuando vaya al consultorio. Si llama a los servicios de asistencia mdica de urgencias, avseles que es posible que haya contrado COVID-19. Mientras est en casa: - Evite el contacto directo con otras personas. Mantngase a jen distancia aproximada de 2 metros. Si es posible, pasen la mayor parte del tiempo en strickland separadas. - Use jen mscara facial si estar en contacto directo con otras personas, por ejemplo, si compartir jen habitacin o un vehculo. - Pida a alguien que limpie las superficies comunes de la casa. Limpie picaportes, mesadas y lavamanos con limpiadores domsticos todos los dang. - Al toser o estornudar, cbrase con un pauelo de papel. Despus de usarlo, deschelo de inmediato. Si no tiene un pauelo de papel, tosa o estornude en el pliegue del codo. - Lvese las carroll con frecuencia. Lvese las carroll despus de estornudar o toser. Lvese con agua y jabn lydia, al menos, 20 segundos. Si no dispone de agua y jabn, use un limpiador de carroll a base de alcohol. - No cocine para otros. Evite compartir objetos personales, hyun tenedores, cucharas o cepillos de dientes. - Mientras est enfermo, evite el contacto directo con las mascotas. No hay indicios de si el virus se transmite a las mascotas. Esta es jen medida de seguridad que debe tenerse en cuenta hasta que se sepa ms acerca de ericka virus. El aislamiento puede ser frustrante. La interaccin social puede ayudar. Mantngase en contacto con amigos y familiares por telfono u otros medios tecnolgicos. Puede interactuar con otras personas en el hogar, emmett mantenga jen distancia rae de ap roximadamente 2 metros. Seguimiento Las pruebas para confirmar la presencia del COVID-19 pueden demorar algunos dang. Es posible que deba seguir los pasos mencionados anteriormente hasta que estn los resultados de las pruebas. Lo llamarn del consultorio mdico para saber si vang habido algn cambio en ricks alfred. [place] le avisarn cuando pueda volver a estar cerca de otras personas. Problemas a los que debe estar atento Comunquese con el mdico si no se recupera segn lo previsto o si tiene problemas hyun los siguientes: - Dificultad para respirar - Dolor de pecho - Empeoramiento de los sntomas Si justo que tiene jen urgencia, llame a los servicios de asistencia mdica de urgencias de inmediato. As taken from [employer] Prednisone (PREDNISONE) 20 Mg Tablet 2 TAB PO DAILY for 5 Days, #10 TAB Prov: ANGELA BLANCO DO 07/31/21 Azithromycin (ZITHROMAX) 250 Mg Tablet 1 PKG PO UD, #6 TAB Prov: ANGELA BLANCO DO 07/31/21 ANGELA BLANCO DO Jul 31, 2021 13:51
[2021-07-31 14:20] LABS: INFLUENZA A PATIENT NEGATIVE (NEGATIVE)
[2021-07-31 14:28] LABS: INFLUENZA B PATIENT POSITIVE (NEGATIVE)
[2021-07-31] MEDS ORDERED: ACETAMINOPHEN 500 MG TABLET PO ONE (14:30)
[2021-07-31] MEDS ORDERED: IBUPROFEN 400 MG TABLET. PO ONE (14:30)
[2021-07-31] MEDS ORDERED: PRED20TA PO (14:56)
[2021-07-31] MEDS ORDERED: AZIT250T PO (14:56)
[2021-07-31 15:30] VITALS: BP 132/61
== END 2021-07-31 15:37 | disposition home or self-care (01) ==
LOC: ER 12:58
DX: U07.1 COVID-19 (principal); J12.82 Pneumonia due to coronavirus disease 2019; J10.1 Influenza due to other identified influenza virus with other respiratory manifestations; J45.909 Unspecified asthma, uncomplicated; Z98.890 Other specified postprocedural states
CPT/HCPCS: 71045; 81025; 87426; 87804; 99285